=== PATIENT | female | born 1975 | race Caucasian/White ===

== ENCOUNTER 2019-10-04 06:49 | Outpatient (REF) | payer OTHER, SELFPAY ==
[2019-10-04 09:37] LABS: Estmated Average Glucose 126
[2019-10-04 11:02] LABS: Basophils # 0.1 10^3/uL (0.0-0.1); Basophils % 0.6 %; Eosinophils # 0.2 10^3/uL (0.0-0.8); Eosinophils % 2.3 %; Hematocrit 45.3 % (37.0-47.0); Hemoglobin 14.8 g/dL (11.5-15.3); Lymphocytes # 3.6 10^3/uL (0.8-4.8); Lymphocytes % 42.6 %; Mean Corpuscular HGB Conc 32.7 g/dL (30.0-36.0); Mean Corpuscular Hemoglobin 29.5 pg (28.0-34.0); Mean Corpuscular Volume 90.2 fL (81-99); Mean Platelet Volume 11.9 fL (7.4-10.4); Monocytes # 0.7 10^3/uL (0.2-0.9); Monocytes % 7.8 %; Neutrophils # 3.9 10^3/uL (1.8-7.7); Neutrophils % 46.5 %; Nucleated Red Blood Cells % 0 %; Platelet Count 337 10^3/cmm (130-400); Red Blood Count 5.02 10^6/uL (4.1-5.3); White Blood Count 8.4 10^3/uL (4.0-10.0)
[2019-10-04 11:34] LABS: Alanine Aminotransferase 28 U/L (0-33); Albumin Level 4.6 g/dL (3.5-5.2); Alkaline Phosphatase 150 IU/L (35-105); Aspartate Amino Transferase 24 U/L (0-32); Blood Urea Nitrogen 9 mg/dL (6-20); Calcium 10.6 mg/dL (8.5-10.5); Carbon Dioxide 26 mmol/L (22-29); Chloride 104 mmol/L (98-107); Chol HDL Ratio 3.13 mg/dL (0.0-4.40); Cholesterol 188 mg/dL (0-200); Globulin 3.8 g/dL (1.3-4.6); Glomerular Filtration Rate 78.3 mL/min (90-130); Glucose 99 mg/dL (65-115); HDL Cholesterol 60 mg/dL (60-100); LDL Cholesterol Calculated 105 mg/dL (50-129); LDL HDL Ratio 1.75 RATIO (0.00-3.22); Sodium 142 mmol/L (136-145); Thyroid Stimulating Hormone 7.42 uIU/mL (0.27-4.20); Total Bilirubin 0.5 mg/dL (0.15-1.2); Total Protein 8.4 g/dL (6.6-8.7); Triglycerides 117 mg/dL (0-150)
[2019-10-04 23:29] LABS: 25 Hydroxy Vitamin D 62 ng/mL (30-100)
== END 2019-10-04 06:50 | disposition home or self-care (01) ==
LOC: LAB 06:49
PROVIDERS: Visit Provider Dermatology
DX: Z01.89 Encounter for other specified special examinations (principal)
CPT/HCPCS: 80053; 80061; 82306; 83036; 84443; 85025

== ENCOUNTER → 2021-06-11 17:48 | Outpatient (BNVA) | payer BC, SELFPAY | PROVIDERS: Visit Provider Registered Nurse Neonatal Intensive Care | DX: J02.9 Acute pharyngitis, unspecified (principal); Z20.822 Contact with and (suspected) exposure to COVID-19 | CPT/HCPCS: 87071; 87635; 87880 ==

== ENCOUNTER → 2023-01-29 14:31 | Outpatient (BNVA) | payer BC, SELFPAY | PROVIDERS: Visit Provider Emergency Medicine | DX: S99.929A Unspecified injury of unspecified foot, initial encounter (principal); X58.XXXA Exposure to other specified factors, initial encounter | CPT/HCPCS: 73610; 73630 ==

== ENCOUNTER 2023-02-20 15:15 | Outpatient (CLI) | payer BC, SELFPAY | END 2023-02-20 15:16 | disposition home or self-care (01) | LOC: SPT 15:16 | PROVIDERS: Visit Provider Podiatrist Foot & Ankle Surgery | DX: S93.402A Sprain of unspecified ligament of left ankle, initial encounter (principal); X58.XXXA Exposure to other specified factors, initial encounter | CPT/HCPCS: 97760; L1902 ==

== ENCOUNTER → 2025-01-17 16:07 | Outpatient (BNVA) | payer BC, SELFPAY | PROVIDERS: Visit Provider Emergency Medicine | DX: M79.641 Pain in right hand (principal) | CPT/HCPCS: 73130 ==

== ENCOUNTER → 2025-02-28 12:47 | Outpatient (BNVA) | payer BC, SELFPAY | PROVIDERS: Visit Provider Emergency Medicine | DX: J02.9 Acute pharyngitis, unspecified (principal) | CPT/HCPCS: 87071; 87880 ==